=== PATIENT | female | born 1975 | race Two or more races ===

== ENCOUNTER → 2021-05-07 | Outpatient (CLI) | payer BC ==
--- NOTE | 2021-05-07 15:26 | KCIC ---
EXAM: Left lower extremity venous Doppler sonogram. HISTORY: Pain and swelling. TECHNIQUE: Bird scale and color Doppler sonographic evaluation of the left lower extremity veins with spectral waveform analysis was performed. FINDINGS: There is normal color flow, normal compressibility and there are normal spectral waveforms in the common femoral, superficial femoral, popliteal, posterior tibial and greater saphenous veins. IMPRESSION: No Doppler evidence of lower extremity deep venous thrombosis. Electronically signed by: Clementine New MD (05/07/2021 3:24 PM) [id number]
--- NOTE | 2021-05-07 15:46 | KCIC ---
Bilateral digital screening mammograms: Reason for examination: Routine baseline screening. Interpretation was made with the benefit of CAD. The skin and nipples show no abnormalities. No abnormal lymph nodes are seen. The breast parenchyma i s predominantly fatty. (Breast density: Category A.) There is a nodular density at the 9:30 B positio n of the right breast 7.5 cm from the nipple and measuring approximately 1. Further evaluation with u ltrasound is recommended. There are no other dominant masses, suspicious calcifications or architectu ral distortions. A few benign calcifications are again seen. Impression: 1 cm nodule at the 9:30 position of the right breast 7.5 cm from the nipple. Recommend further evalua tion with ultrasound. BI-RADS Category 0: Incomplete. Needs additional imaging evaluation. "Our facility is accredited by the [employer]." This patient's information has been entered into a reminder system for the patient to be notified wit h the results of her examination and a target date for the next mammogram. Electronically signed by: Meeta Rene MD (05/07/2021 3:44 PM) [id number]
== END ==
LOC: KCIC US 14:32
PROVIDERS: ATTEND Family Medicine
DX: Z12.31 Encounter for screening mammogram for malignant neoplasm of breast (principal); N63.11 Unspecified lump in the right breast, upper outer quadrant; R92.1 Mammographic calcification found on diagnostic imaging of breast; M79.89 Other specified soft tissue disorders; M79.605 Pain in left leg
CPT/HCPCS: 77067; 93971

== ENCOUNTER → 2021-05-29 | Outpatient (CLI) | payer BC ==
--- NOTE | 2021-05-29 11:50 | KCIC ---
Right breast ultrasound: Reason for examination: Nodular density on screening mammogram. Comparison is made to mammographic exam dated 05/07/2021. Ultrasound examination was performed of the right breast and the axilla. At the 9:30 position 6 cm from the nipple, there are 2 small hypoechoic circumscribed lesions In parallel orientation measuring approximately 5.8 mm and 8.4 mm in greatest dimensions. The appeara nce suggests small fibroadenoma. No other cystic or solid nodules are seen. No abnormal appearing lym ph nodes are seen in the axilla. IMPRESSION: Benign-appearing circumscribed nodules consistent with fibroadenoma at the 9:30 position 6 cm from th e nipple. Recommend 6 month follow-up with ultrasound. BI-RADS Category 3: Probably Benign. "Our facility is accredited by the [employer]." This patient's information has been entered into a reminder system for the patient to be notified wit h the results of her examination and a target date for the next mammogram. Electronically signed by: Meeta Rene MD (05/29/2021 11:47 AM) [email or web address]
== END ==
LOC: KCIC US 08:45
PROVIDERS: ATTEND Family Medicine
DX: R92.8 Other abnormal and inconclusive findings on diagnostic imaging of breast (principal); N63.11 Unspecified lump in the right breast, upper outer quadrant
CPT/HCPCS: 76641

== ENCOUNTER → 2021-08-13 | Outpatient (CLI) | payer BC ==
--- NOTE | 2021-08-13 17:32 | KCIC ---
INDICATION: Reason: ABNORMAL UTERINE BLEEDING / Spl. Instructions: / History: COMPARISON: None available TECHNIQUE: Grayscale and color ultrasound images uterus and adnexa. FINDINGS: Uterus: 158 x 95 x 91 mm. There is a large mass measuring at least 85 x 61 x 85 mm at the uterus which appears solid and predom inantly hypoechoic. There is internal vascularity seen. This replaces the majority of the uterine brandi metrium. The endometrial stripe is not seen secondary to distortion from the large uterine mass. Right Ovary: 17 x 15 mm. Left Ovary: 19 x 15 mm. Vascular flow identified to bilateral ovaries. IMPRESSION: * There is a large hypoechoic mass replacing a large portion of the uterus and obscuring the endome trium and myometrium tissue. The most common cause would be a large uterine fibroid but if more compl ete characterization is needed MRI could be obtained with and without contrast could be obtained to f urther assess and ensure that there is not a higher grade mass contributing such as endometrial neopl asm or uterine sarcoma. Electronically signed by: Patel Darden MD (08/13/2021 5:30 PM) [id number]
== END ==
LOC: KCIC US 15:18
PROVIDERS: ATTEND Nurse Practitioner Family
DX: N85.8 Other specified noninflammatory disorders of uterus (principal); N93.9 Abnormal uterine and vaginal bleeding, unspecified
CPT/HCPCS: 76856

== ENCOUNTER 2021-10-29 18:12 | Emergency (ER) | payer BC ==
[~2021-10-29] VITALS: Ht 157.5 cm; Wt 120.0 kg
[2021-10-29] MEDS ORDERED: IV NORMAL SALINE 1000ML BAG 1,000 ML IV ONE (18:45)
--- NOTE | 2021-10-29 18:49 | PHYS DOC ---
Past Medical History Additional Past Medical Histor: MORBID OBESITY, UTERINE FIRBROIDS Past Surgical History: Tubal ligation Smoking Status: Never Smoker Alcohol Use: None General Adult EDM: Chief Complaint: ABDOMINAL PAIN HPI: HPI: Patient is a 46-year-old female that presents today with epigastric pain that radiates to her back. Patient states that approximately 3 weeks ago she had similar pain and went to [facility] to the emergency department and was seen and was diagnosed with gallstones, I instructed her to follow-up with her primary care physician for which she has an appointment November 19 for but she says she today around 430 she started having increased back pain and then has some associated abdominal pain in the epigastric region related to it. Patient states she was not given any instructions on dietary restrictions or any pain medication or nausea medication should she need it. Patient states she took an Advil prior to arrival that has not helped with her pain. Patient states that she was sitting at her desk when the pain occurred and she does not denies any trauma at this time. Patient is currently on her menstrual cycle she states Review of Systems: Review of Systems: Constitutional: Denies fever or chills. [] Eyes: Denies change in visual acuity. [] HENT: Denies nasal congestion or sore throat. [] Respiratory: Denies cough or shortness of breath. [] Cardiovascular: Denies chest pain or edema. [] GI: Epigastric pain and nausea denies vomiting, bloody stools or diarrhea. [] : Denies dysuria. [] Musculoskeletal: Back pain denies joint pain. [] Integument: Denies rash. [] Neurologic: Denies headache, focal weakness or sensory changes. [] Endocrine: Denies polyuria or polydipsia. [] Lymphatic: Denies swollen glands. [] Psychiatric: Denies depression or anxiety. [] Heart Score: C/O Chest Pain: No Risk Factors: Risk Factors: DM, Current or recent (<one month) smoker, HTN, HLP, family history of CAD, obesity. Risk Scores: Score 0 - 3: 2.5% MACE over next 6 weeks - Discharge Home Score 4 - 6: 20.3% MACE over next 6 weeks - Admit for Clinical Observation Score 7 - 10: 72.7% MACE over next 6 weeks - Early Invasive Strategies Current Medications: Current Medications Medications (Trade) Dose Ordered Sig/Ioana Start Time Stop Time Status Last Admin Dose Admin Fentanyl Citrate (Fentanyl 2ml Vial) 50 mcg 1X ONCE 10/29/21 18:45 10/29/21 18:46 UNV Ondansetron HCl (Zofran) 4 mg 1X ONCE 10/29/21 18:45 10/29/21 18:46 UNV Sodium Chloride 1,000 ml @ 999 mls/hr 1X ONCE 10/29/21 18:45 10/29/21 19:45 UNV Allergies: Allergies: Allergies Coded Allergies Type Severity Reaction Last Updated Verified No Known Drug Allergies 10/29/21 No Physical Exam: PE: Constitutional: Well developed, well nourished, mild distress, non-toxic appearance. [] HENT: Normocephalic, atraumatic, bilateral external ears normal, oropharynx moist, no oral exudates, nose normal. [] Eyes: PERRLA, EOMI, conjunctiva normal, no discharge. [] Neck: Normal range of motion, no tenderness, supple, no stridor. [] Cardiovascular:Heart rate regular rhythm, no murmur [] Lungs & Thorax: Bilateral breath sounds clear to auscultation [] Abdomen: Bowel sounds normal, abdomen soft with tenderness located at the epigastric region, no masses, no pulsatile masses. [] Skin: Warm, dry, no erythema, no rash. [] Back: tenderness with palpation below the scapular area, no CVA tenderness. No ecchymosis, contusions noted [] Extremities: No tenderness, no cyanosis, no clubbing, ROM intact, no edema. [] Neurologic: Alert and oriented X 3, normal motor function, normal sensory function, no focal deficits noted. [] Psychologic: Affect normal, judgement normal, mood normal. [] Current Patient Data: Labs: Laboratory Tests Test 10/29/21 18:18 10/29/21 18:26 Urine Collection Type Unknown Urine Color (Auto) Light yellow Urine Turbidity Clear Urine pH (Auto) 7.0 Urine Specific [place] 1.023 Urine Protein (Auto) Negative mg/dL Urine Glucose (Auto)(UA) Negative mg/dL Urine Ketones (Auto) Negative mg/dL Urine Blood (Auto) Moderate Urine Nitrite Negative Urine Bilirubin (Auto) Negative Urine Urobilinogen (Auto) Normal mg/dL Urine Leukocyte Esterase (Auto) Negative Urine RBC >40 /HPF Urine WBC Occ /HPF Urine Squamous Epithelial Cells Mod /LPF Urine Bacteria 0 /HPF Urine Mucus Mod /LPF White Blood Count 11.3 x10^3/uL Red Blood Count 4.36 x10^6/uL Hemoglobin 12.4 g/dL Hematocrit 36.7 % Mean Corpuscular Volume 84 fL Mean Corpuscular Hemoglobin 29 pg Mean Corpuscular Hemoglobin Concent 34 g/dL Red Cell Distribution Width 14.8 % Platelet Count 307 x10^3/uL Neutrophils (%) (Auto) 59 % Lymphocytes (%) (Auto) 33 % Monocytes (%) (Auto) 6 % Eosinophils (%) (Auto) 2 % Basophils (%) (Auto) 1 % Neutrophils # (Auto) 6.6 x10^3/uL Lymphocytes # (Auto) 3.7 x10^3/uL Monocytes # (Auto) 0.7 x10^3/uL Eosinophils # (Auto) 0.2 x10^3/uL Basophils # (Auto) 0.1 x10^3/uL Sodium Level 140 mmol/L Potassium Level 3.5 mmol/L Chloride Level 102 mmol/L Carbon Dioxide Level 30 mmol/L Anion Gap 8 Blood Urea Nitrogen 15 mg/dL Creatinine 1.1 mg/dL Estimated GFR (Cockcroft-Gault) 54.0 BUN/Creatinine Ratio 14 Glucose Level 76 mg/dL Calcium Level 8.6 mg/dL Total Bilirubin 0.3 mg/dL Aspartate Amino Transf (AST/SGOT) 15 U/L Alanine Aminotransferase (ALT/SGPT) 12 U/L Alkaline Phosphatase 84 U/L Total Protein 7.4 g/dL Albumin 3.6 g/dL Albumin/Globulin Ratio 0.9 Lipase 217 U/L Current Medications Medications (Trade) Dose Ordered Sig/Ioana Route PRN Reason Start Time Stop Time Status Last Admin Dose Admin Sodium Chloride 1,000 ml @ 999 mls/hr 1X ONCE IV 10/29/21 18:45 10/29/21 19:45 10/29/21 18:45 Ondansetron HCl (Zofran) 4 mg 1X ONCE IVP 10/29/21 19:30 10/29/21 19:31 DC 10/29/21 19:02 Fentanyl Citrate (Fentanyl 2ml Vial) 50 mcg 1X ONCE IVP 10/29/21 19:30 10/29/21 19:31 DC 10/29/21 19:02 Fentanyl Citrate (Fentanyl 2ml Vial) 75 mcg 1X ONCE IVP 10/29/21 19:45 10/29/21 19:46 Vital Signs: Vital Signs Date Time Temp Pulse Resp B/P (MAP) Pulse Ox O2 Delivery O2 Flow Rate FiO2 10/29/21 18:34 98.1 80 16 142/83 (102) 97 Room Air 98.1 EKG: EKG: [] Radiology/Procedures: Radiology/Procedures: [REASON: upper abdomen pain PROCEDURE: ABDOMEN LTD US ABDOMEN LIMITED History: Reason: upper abdomen pain / Spl. Instructions: / History: Comparison: None. Technique: Transabdominal ultrasound images are obtained of the right upper quadrant. Findings: Liver is increased in echogenicity. Right hepatic lobe measures 15.4 cm. Portal flow is hepatopedal. Cholelithiasis. No gallbladder wall thickening or pericholecystic fluid. The nonmobile stone within the gallbladder body. Positive sonographic Dorsey sign. Common bile duct measures 5 mm in diameter. Visualized pancreas pancreas not well seen due to overlying structures. The right kidney measures 9.4 x 4.6 x 4.5 cm. No hydronephrosis. Visualized portions of the aorta and IVC have normal caliber. IMPRESSION: 1. Cholelithiasis with positive sonographic Dorsey sign. HIDA scan can further evaluate. 2. Increased hepatic echotexture, may indicate steatosis. Electronically signed by: Bakari Cramer DO (10/29/2021 7:39 PM) [facility]] Course & Med Decision Making: Course & Med Decision Making Pertinent Labs and Imaging studies reviewed. (See chart for details) 1952 reviewed radiological and laboratory results with patient at length did give her the option of admission to the hospital for pain management and for a consult with gastrointestinal services and surgery, or going home with oral pain medication and oral antinausea medicine and to keep her appointment on November [address] Paul with GI services. Patient has elected to go home with oral pain medications and nausea medication and to continue to follow-up with Dr. Paul as scheduled previously. Patient was encouraged to take her pain medication when her pain starts and not to wait too long, she can take Motrin 600 mg every 6 hours as needed for [id number] pain, and if her pain continues to escalate she can take Percocet 1 to 2 tablets every 6 hours as needed for severe pain. Patient will also have available Zofran ODT to be taken every 6-8 hours as needed for nausea. Patient verbalized understanding of this and she also understand the importance of returning to the emergency department should she have increased abdominal pain, inability to keep any by mouth fluids down, development of a fever or any other concerns you may have. Dragon Disclaimer: Dragon Disclaimer: This electronic medical record was generated, in whole or in part, using a voice recognition dictation system. Departure Departure Impression: Primary Impression: Cholelithiases Qualified Codes: K80.20 - Calculus of gallbladder without cholecystitis without obstruction Disposition: HOME / SELF CARE / HOMELESS Condition: STABLE Referrals: ALVAREZ FIELDS MD (PCP) ALVAREZ MULLIGAN MD, MICHAEL F MD Patient Instructions: Cholelithiasis, Clear Liquid Diet, Diet for Gastroesophageal Reflux Disease, Adult Additional Instructions: Clear liquid diet for the next 12 to 24 hours then advance as tolerated Follow the list of a low-fat diet for gallbladder disease to help with controlling attacks from your gallstones Motrin 600 mg take 1 tablet every 6 hours with food as needed for mild to moderate pain. Use with caution may cause stomach upset Percocet take 1 to 2 tablets every 6 hours as needed for severe pain, use with caution may cause drowsiness and constipation Zofran take 1 tablet every 6-8 hours as needed for nausea use with caution may cause constipation Call Dr. Paul's office to see about moving up your appointment Return to the emergency department should you have increased pain that is not controlled by her pain medication, nausea that is not controlled by your nausea medicine or you are unable to keep any medication down, development of a fever, or any chest pain. Scripts Oxycodone/Apap 5-325 (PERCOCET 5-325 MG TABLET ) 1 Each Tablet 2 TAB PO PRN Q6HRS PRN for MODERATE PAIN 4-6 MDD 4 Tablet(s), #30 TAB 0 Refills Prov: AMY PULIDO APRN 10/29/21 Ondansetron (ONDANSETRON ODT) 4 Mg Tab.rapdis 1 TAB PO PRN Q6-8HRS, #16 TAB Prov: AMY PULIDO APRN 10/29/21 Ibuprofen (IBUPROFEN) 600 Mg Tablet 600 MG PO PRN Q6HRS PRN for INFLAMMATION, #30 TAB Prov: AMY PULIDO RIP TAILER 10/29/21 AMY PULIDO RIP TAILER Oct 29, 2021 18:49
[2021-10-29 18:53] LABS: BASO # 0.1 x10^3/uL (0.0-0.2); BASO % 1 % (0-3); EOS # 0.2 x10^3/uL (0.0-0.7); EOS % 2 % (0-3); HEMATOCRIT 36.7 % (36.0-47.0); HEMOGLOBIN 12.4 g/dL (12.0-15.5); LYMPH # 3.7 x10^3/uL (1.0-4.8); LYMPH % 33 % (24-48); MEAN CORPUSCULAR HEMOGLOBIN 29 pg (25-35); MEAN CORPUSCULAR HGB CONC 34 g/dL (31-37); MEAN CORPUSCULAR VOLUME 84 fL (79-100); MONO # 0.7 x10^3/uL (0.0-1.1); MONO % 6 % (0-9); NEUT # 6.6 x10^3/uL (1.8-7.7); NEUT % 59 % (31-73); PLATELET COUNT 307 x10^3/uL (140-400); RED BLOOD COUNT 4.36 x10^6/uL (3.50-5.40); RED CELL DISTRIBUTION WIDTH 14.8 % (11.5-14.5); WHITE BLOOD COUNT 11.3 x10^3/uL (4.0-11.0)
[2021-10-29 18:58] LABS: BACTERIA,URINE 0 /HPF (0-FEW); RBC,URINE >40 /HPF (0-2); WBC,URINE OCC /HPF (0-4)
[2021-10-29 19:01] LABS: CALCIUM 8.6 mg/dL (8.5-10.1); CREATININE 1.1 mg/dL (0.6-1.0); POTASSIUM 3.5 mmol/L (3.5-5.1)
[2021-10-29 19:07] LABS: ALBUMIN 3.6 g/dL (3.4-5.0); ALBUMIN/GLOBULIN RATIO 0.9 (1.0-1.7); TOTAL BILIRUBIN 0.3 mg/dL (0.2-1.0); TOTAL PROTEIN 7.4 g/dL (6.4-8.2)
[2021-10-29] MEDS ORDERED: fentaNYL PF VIAL 100 MCG/2 ML VIAL IVP ONE ×2 (19:30→19:45)
[2021-10-29] MEDS ORDERED: ONDANSETRON PF 4 MG/2 ML VIAL. IVP ONE (19:30)
--- NOTE | 2021-10-29 19:41 | RAD ---
US ABDOMEN LIMITED History: Reason: upper abdomen pain / Spl. Instructions: / History: Comparison: None. Technique: Transabdominal ultrasound images are obtained of the right upper quadrant. Findings: Liver is increased in echogenicity. Right hepatic lobe measures 15.4 cm. Portal flow is hepatopedal. Cholelithiasis. No gallbladder wall thickening or pericholecystic fluid. The nonmobile stone within t he gallbladder body. Positive sonographic Dorsey sign. Common bile duct measures 5 mm in diameter. Visualized pancreas pancreas not well seen due to overlying structures. The right kidney measures 9.4 x 4.6 x 4.5 cm. No hydronephrosis. Visualized portions of the aorta and IVC have normal caliber. IMPRESSION: 1. Cholelithiasis with positive sonographic Dorsey sign. HIDA scan can further evaluate. 2. Increased hepatic echotexture, may indicate steatosis. Electronically signed by: Bakari Cramer DO (10/29/2021 7:39 PM) [facility]
[2021-10-29] MEDS ORDERED: ONDA4TAB12 PO (20:18)
[2021-10-29] MEDS ORDERED: IBUP-1007 PO (20:18)
[2021-10-29] MEDS ORDERED: OXYC1TAB15 PO (20:18)
[2021-10-29 20:24] VITALS: BP 113/77
== END 2021-10-29 20:34 | disposition home or self-care (01) ==
LOC: ER 18:12
DX: K80.20 Calculus of gallbladder without cholecystitis without obstruction (principal); E66.01 Morbid (severe) obesity due to excess calories; Z68.42 Body mass index [BMI] 45.0-49.9, adult
CPT/HCPCS: 36415; 76705; 80053; 81001; 83690; 85025; 96361; 96374; 96375; 96376; 99284; J2405; J3010; J7030

== ENCOUNTER → 2021-12-02 | Outpatient (CLI) | payer BC ==
[~2021-12-02] MED LIST: IBUP-1007 PO; ONDA4TAB12 PO; OXYC1TAB15 PO; SIMV20TA18 PO; TRIA1CAP3 PO; [UNRECOGNIZED DRUG - OTHER] PO
== END ==
LOC: LAB 14:37
PROVIDERS: ATTEND Surgery
DX: Z01.812 Encounter for preprocedural laboratory examination (principal); Z20.822 Contact with and (suspected) exposure to COVID-19; K80.10 Calculus of gallbladder with chronic cholecystitis without obstruction
CPT/HCPCS: U0003